=== PATIENT | male | born 1970 | race Caucasian/White ===

== ENCOUNTER 2016-09-06 10:00 | Inpatient (IN) | payer MEDICAID ==
[~2016-09-06] VITALS: Ht 188 cm; Wt 142.3 kg
--- NOTE | ~2016-09-06 | ECHO ---
Transthoracic Echocardiography Report (TTE) Demographics Patient Name ADITYA LUNA Date of Study 09/07/2016 Patient Number [id number] Visit Number [id number] Date of 1970 Room Number G6307 Accession Number [id number] Gender Male Age 46 year(s) Referring Carmen Jarquin Desk Maker Kaelyn Irving RDCS, Physician RVT Physician Interpreting Yrn David MD Stamps Or Coins Salesperson Physician Supervising Ordering Physician Carmen Jarquin MD/MLP Nurse Stress Desktop Manager Conclusions Contractility Score Summary Normal Left Ventricular contractility was noted. Summary The estimated left ventricular ejection fraction is 55-60%. Mild concentric left ventricular hypertrophy. Mild to moderately dilated right ventricle. The left atrium is mildly dilated. The right atrium is moderately dilated. IVC measures 2.5 cm with inspiratory collapse. There is mild pulmonary hypertension. The pulmonary pressure (RVSP) is 40 mmHg. The tricuspid valve is not well visualized. Procedure Type of Study TTE procedure:2D Echocardiogram. Procedure Date Date: 09/07/2016 Start: 10:37 AM Study Location: Inpatient Portable Technical Quality: Limited visualization due to body habitus. Indications:Abnormal ECG. Additional Indications:PVC's Appropriate Use Criteria: 9 Patient Status: Routine Contrast Medium: Definity. Rhythm: Irregular HR: 88 bpm M-Mode/2D Measurements LV Diastolic Dimension: 5.16 cm LV Systolic Dimension: 3.64 cm LV Septum Diastolic: 1.24 cm LV Septum Systolic: 4.65 cm LV PW Diastolic: 1.2 cm AO Root Dimension: 2.9 cm Cardiac Output: 6.69 l/min AV Cusp Separation: 2.2 cm RV Diastolic Dimension: 2.87 cm LA Dimension: 4.2 cm LA volume: 100 ml IVC Inspiration: 1.48 cm LVOT: 2.5 cm RV Base: 5.17 cm LVOT VTI: 15.5 cm RV Mid: 3.52 cm LV Stroke volume: 76.05 ml RV Length: 8.05 cm TAPSE: 2.48 cm TDI-S': 13.9 cm/s Doppler Measurements AV Peak Velocity: 1.61 m/s MV Peak E-Wave: 0.79 m/s AV Peak Gradient: 10.37 mmHg MV Peak A-Wave: 0.85 m/s AV Mean Gradient: 6 mmHg MV E/A Ratio: 0.93 LVOT Peak Velocity: 0.83 m/s MV P1/2t: 44 msec TR Gradient:32.26 mmHg PV Peak Velocity: 1.02 m/s Estimated RAP:8 mmHg PV Peak Gradient: 4.16 mmHg Estimated RVSP: 40 mmHg Estimated PASP: 40.26 mmHg Findings Left Ventricle The estimated left ventricular ejection fraction is 55-60%. Mild concentric left ventricular hypertrophy. Diastolic assessment reveals Grade I diastolic dysfunction. Right Ventricle Mild to moderately dilated right ventricle. Left Atrium The left atrium is mildly dilated. Right Atrium The right atrium is moderately dilated. IVC measures 2.5 cm with inspiratory collapse. Mitral Valve Trivial mitral regurgitation by color Doppler. Aortic Valve The aortic valve is mildly sclerotic. Tricuspid Valve There is mild to moderate pulmonary hypertension. The pulmonary pressure (RVSP) is 40 mmHg. The tricuspid valve is not well visualized. Pulmonic Valve The pulmonic valve is not well visualized. Pericardial Effusion No evidence of pericardial effusion. Miscellaneous Visualized portions of the aortic root and ascending aorta appear normal in size. Pleural Effusion No evidence of pleural effusion. Contractility Score LV regional wall motion:(0-Non visualized 1-Normal 2-Hypokinesis 3-Akinesis 4-Dyskinesis 5-Aneurysm) Signature dtt: Frankie Pool (cardio) dtd: 09/07/16 [facility] Physician Self Edit
--- NOTE | ~2016-09-06 | OR ---
PATIENT'S NAME: ADITYA LUNA [facility] AGE: 46 Y [address] ROOM: [place] [address] LOCATION: GPCU ADMIT DATE: 09/06/2016 OR/Procedure Report DISCHARGE DATE: 09/09/2016 FAMILY PHYSICIAN: PHYSICIAN, NO ATTENDING PHYSICIAN: Milka Morales SURGEON: Mian Guzman MD MANAGEMENT ARCHITECT: DATE OF PROCEDURE: 09/06/2016 REFERRIN. Kay Tripp PA-C, in [place]. 2. Dr. Brandt Bolden. PREOPERATIVE DIAGNOSES: 1. Cholecystitis, cholelithiasis. 2. Possible cholangitis, sepsis. POSTOPERATIVE DIAGNOSIS: Gangrenous cholecystitis with gangrenous cystic portion of cystic duct and obstruction of cystic duct secondary to stones. PROCEDURE PERFORMED: Laparoscopic cholecystectomy. ANESTHESIA: General. ESTIMATED BLOOD LOSS: Less than 100 mL. SPECIMEN: Gallbladder with gangrenous wall changes and stones. INDICATION: The patient is a 46-year-old gentleman with history of morbid obesity, losing 325 pounds in the last two years, he is down to 300, but in the last 48 hours had persistent pain in the epigastrium into his back. He presents with a white count of 20,000, his bilirubin is up to 4.5. Ultrasound showed thick gallbladder with stones, and MRCP showed normal common bile duct but dilated cystic duct and gallbladder with inflammatory changes and stones. We elected to take him to the operating room urgently for cholecystectomy and hopeful cholangiogram. DESCRIPTION OF PROCEDURE: After informed consent, the patient was taken to the operating room, and after general endotracheal anesthesia, the patient's abdomen was prepped and draped into a sterile field. Local anesthetic infiltrated prior to each incision. The first one made below the umbilicus and carried down to identify a very attenuated abdominal wall fascia through which we placed a Veress needle and created pneumoperitoneum. We placed an 11 mm trocar and laparoscope. Safe entry was noted under direct vision. The remaining trocars were placed. The gallbladder was tightly distended. There PATIENT'S NAME: ADITYA LUNA [facility] AGE: 46 Y [address] ROOM: [place] [address] LOCATION: GPCU ADMIT DATE: 09/06/2016 OR/Procedure Report DISCHARGE DATE: 09/09/2016 FAMILY PHYSICIAN: PHYSICIAN, NO ATTENDING PHYSICIAN: Milka Morales were gangrenous changes. We photographed it. We had to aspirate 50 mL of purulent dark bile out of it in order to get to the fundus, in order to grab the fundus and retract it cephalad. Acute and chronic inflammatory changes held the infundibulum down to the duodenum and the mesentery of the mesocolon and the mesentery of the transverse colon. We carefully, meticulously, just bluntly took our time and dissected using electrocautery, blunt dissection, water irrigation, and suction. We could tell that the infundibulum was very gangrenous. It was difficult to grab this with the trocar without getting a hold, but with careful and meticulous dissection and we slowly cleared off, what we could see is the tortuous dilated cystic duct leaving the gallbladder, looping over itself and going down toward the duodenum. We then identified a decompressed portion of the cystic duct, which still had some gangrenous changes. We isolated out the cystic artery, clipped x3 and divided, and we clipped the cystic artery x2 and divided. We could not perform a cholangiogram due to the inflammatory changes, the patient's morbid obesity, and the fact that the cystic duct which was visualized was necrotic and we did want to try to attempt to stick a cholangiogram catheter down there and have a distal puncture. We felt safe with the defined anatomy, we were high and we were not presumably near the common bile duct. We placed two clips, divided the cystic duct on the more dilated gangrenous portion. We then used an Endoloop to again secure it. The ischemic mucosa of the cystic duct was noted, and we planned on leaving a drain. We then took the gallbladder off the liver bed with electrocautery, and we used cautery to obtain hemostasis. It was placed into an Endo Catch bag, a very thickened gallbladder with stones. We had to enlarge the fascial defect at the umbilicus in order to get it out. Once removed, we used interrupted 0 Prolene sutures in a [id number]-gf-ypmug to close the fascial defect. We recreated pneumoperitoneum and copiously irrigated the right upper quadrant with 4 L of irrigation fluid until clear. Through the 5 mm lateral drain, we left a INOCENCIO in place. We left it in the superior aspect of the gallbladder fossa down by the subhepatic space. We used Endo Stitch of 0 Vicryl to close the subxiphoid fascial defect in the midline. We then released the pneumoperitoneum and tied down the Prolene sutures of the fascia closure at the umbilicus. We closed the skin with subcuticular 4-0 Vicryl. Steri- Strips and sterile dressings were applied. The patient tolerated the procedure well and transferred to recovery room in stable condition. MD NORAH FITZGERALD/modl /[id number] d: 09/07/16 0059 t: 09/20/16 0904, OPERATIVE SUMMARY
--- NOTE | ~2016-09-06 | DS ---
PATIENT'S NAME: ADITYA LUNA [facility] AGE: 46 Y [address] ROOM: [address] [address] LOCATION: GPCU ADMIT DATE: 09/06/2016 Discharge Summary DISCHARGE DATE: 09/09/2016 FAMILY PHYSICIAN: PHYSICIAN, SUPRIYA ATTENDING PHYSICIAN: Milka Morales ADMITTING DIAGNOSIS: Severe sepsis, secondary to cholecystitis. DISCHARGE DIAGNOSIS: Severe sepsis, secondary to cholecystitis, resolving, status post cholecystectomy. SECONDARY DIAGNOSES: 1. Obesity. 2. Abdominal pain. 3. Premature ventricular contractions. PROCEDURE: Cholecystectomy done on 09/06/[address] Guzman. CONSULTATION: GI and General Surgery. HISTORY OF PRESENT ILLNESS: The patient is a 46-year-old gentleman with past medical history of obesity and gastric sleeve surgery with close to 300-pound weight loss and history of DVTs, who presented from [facility] with possible cholangitis. The patient has been experiencing two days history of right upper quadrant pain. The patient was evaluated in the emergency department and had leukocytosis of 20 and a bilirubin of 4.5. Ultrasound showed cholecystitis with possible common bile duct dilation. The patient was transferred for possible ERCP. HOSPITAL COURSE: The patient was admitted and started on Zosyn and IV fluids. Blood culture was taken. GI was consulted for possible cholangitis. MRCP was done. MRCP did not show any signs of common bile duct obstruction or dilation. The patient was taken to surgery and had cholecystectomy. The patient tolerated the procedure well. The patient continued to be treated with Zosyn. Blood culture no growth to date. Leukocytosis improved during his stay. The patient had INOCENCIO drain in place after surgery. The patient was discharged home in stable condition to follow up with Dr. Guzman with his INOCENCIO drain removal on 09/11/2016. The patient was educated on how to use his drain. The patient was also noted to have several PVCs during his stay. The patient has a history of multiple PVCs and has been worked up by his Cardiology and was placed on beta-noe, Lopressor. But, however, his primary care physician discontinued his Lopressor, and recently has been having more PVCs. To continue, the patient was started back on Lopressor 12.5 mg and increased to 25 mg b.i.d. PVCs frequency decreased. Echocardiogram was done to evaluate structural disease. Echocardiogram was unremarkable. PATIENT'S NAME: ADITYA LUNA [facility] AGE: 46 Y [address] ROOM: [id number] [place], [place] [address] [facility] ADMIT DATE: 09/06/2016 Discharge Summary DISCHARGE DATE: 09/09/2016 FAMILY PHYSICIAN: PHYSICIAN, NO ATTENDING PHYSICIAN: Milka Morales CONDITION: Stable. DISPOSITION: Home. DISCHARGE MEDICATIONS: See APR. DISCHARGE INSTRUCTIONS: Follow up with Dr. Guzman and also INOCENCIO drain care. FOLLOWUP: Follow up with Dr. Guzman on 09/11/2016. PHYSICAL EXAMINATION: VITAL SIGNS: Temperature 98.2, blood pressure 156/90, pulse of 93, respiratory rate of 18. GENERAL APPEARANCE: The patient is alert and awake, in no acute distress. CHEST: Clear to auscultation bilaterally. HEART: Regular rate and rhythm. No murmurs, rubs, or gallops. ABDOMEN: Soft, nontender, and distended. Bowel sounds present. INOCENCIO drain in place. EXTREMITIES: No edema. SKIN: Warm to touch. CABLE INSTALLER: Alert and oriented x3. Motor and sensory grossly intact. Greater than 30 minutes was spent on the patient care. The patient to be discharged home on oral Augmentin for 5 more days. MD ROMULO GIBBONS/fran /[id number] d: 09/10/16 0256 t: 09/17/16 0614, DISCHARGE SUMMARY
--- NOTE | ~2016-09-06 | CON ---
PATIENT'S NAME: ADITYA LUNA [facility] AGE: 46 Y [address] ROOM: [place] [address] LOCATION: GICU ADMIT DATE: 09/06/2016 Consultation DISCHARGE DATE: FAMILY PHYSICIAN: PHYSICIAN, NO ATTENDING PHYSICIAN: Milka MORALES DATE OF CONSULTATION: 09/06/2016 REFERRING PHYSICIAN: Milka Morales MD REASON FOR CONSULTATION: Possible choledocholithiasis. HISTORY OF PRESENT ILLNESS: The patient is a pleasant, 46-year-old white male who has been referred to us from [facility]. He presented there this morning with abdominal pain. According to the patient, he was having abdominal pain for the last 2 days. The pain was particularly bad the day before yesterday. He says it was in the right upper quadrant with intensity of about 7/10. The pain was somewhat better yesterday. However, the pain got worse overnight. He presented to the hospital. He was found to have abnormal liver enzymes with bilirubin of 4. He was also found to have a slightly prominent CBD and cholelithiasis and likely cholecystitis. With a suspicion of choledocholithiasis, he has been transferred here. He denies any history of fever or chills. He has not been hemodynamically unstable. No history of nausea and vomiting. Pain is currently 6/10. PAST MEDICAL HISTORY: Significant for gastric bypass surgery. He has lost 300 pounds of weight. This surgery was done in 2014. His past medical history is significant for essential hypertension, frequent PVCs, morbid obesity, and obstructive sleep apnea which has improved since the surgery. ALLERGIES: NO KNOWN DRUG ALLERGIES. MEDICATIONS: Include: 1. Flonase Allergy Relief nasal spray. 2. Albuterol sulfate. 3. Vitamin D3. 4. Toprol-XL. PAST SURGICAL HISTORY: Positive for surgery of the right leg, he says he has "metal" in there. He also has a history of gastric sleeve resection. PATIENT'S NAME: ADITYA LUNA [facility] AGE: 46 Y [address] ROOM: [place] [address] LOCATION: GICU ADMIT DATE: 09/06/2016 Consultation DISCHARGE DATE: FAMILY PHYSICIAN: PHYSICIAN, NO ATTENDING PHYSICIAN: Milka MORALES PSYCHOSOCIAL HISTORY: He denies any tobacco use. Occasional alcohol use. He has used occasional marijuana, last one was about 4 days ago. REVIEW OF SYSTEMS: A detailed 10-point review of system was done. It was found to be negative other than what is mentioned in the History of Present Illness and Past Medical History. PHYSICAL EXAMINATION: GENERAL: Today, he is alert and awake. He does not appear to be in any acute distress. VITAL SIGNS: He is afebrile. Heart rate is 100 per minute, blood pressure 162/110. HEENT: Mild icterus. No pallor. Head and ENT: Oral cavity is normal. Nasal passages are clear. NECK: No thyromegaly is felt. No masses are felt. CARDIOVASCULAR: S1 and S2. I do not hear any carotid bruits. CHEST: Clear to auscultation bilaterally. No wheezing. No rhonchi. ABDOMEN: Soft. There is owoj-zy-xgwhirwq tenderness in the right upper quadrant. MUSCULOSKELETAL: No obvious injuries found. He does have venous stasis of the lower extremities. NEUROLOGIC: Grossly nonfocal. LABORATORY DATA: His labs done over the course of the last day include a urine complete exam that shows nitrite positive and 0 to 3 wbc's per high-powered field. His troponin-I is negative. His glucose is 167, BUN is 9, creatinine 1.07, sodium 136, potassium 3.4, chloride is 99, bicarbonate is 26. Albumin is 3.2, total bilirubin is 4.1, ALT of 865, AST of 142, alkaline phosphatase is 355. His WBC is 20.1, hemoglobin 17.5, hematocrit 49.5. Amylase is 37 and lipase is 66. His platelet count is 345. Ultrasound done at the other facility. Ultrasound shows cholelithiasis with findings suggestive of cholecystitis. A small portion of the CBD was visualized. This was dilated to about 7 mm. IMPRESSION: The patient with a history of abdominal pain and cholelithiasis. He does appear to have acute cholecystitis with a suspicion of choledocholithiasis. He does not appear to have cholangitis at this time. RECOMMENDATIONS: I would suggest that the patient undergo an MRCP. Pending results of that, we will decide on further management. The patient should continue on IV antibiotics. I have had a detailed discussion with the patient. I have PATIENT'S NAME: ADITYA LUNA [facility] AGE: 46 Y [address] ROOM: [address] [address] LOCATION: [facility] ADMIT DATE: 09/06/2016 Consultation DISCHARGE DATE: FAMILY PHYSICIAN: PHYSICIAN, NO ATTENDING PHYSICIAN: Milka MORALES explained to him the procedure of MRCP as well as ERCP. The procedure of ERCP was explained in detail. All risks including, but not limited to bleeding, perforation, and possible need for surgery were explained. Informed consent has been obtained. Pending the results of the MRCP, further management will be decided. I discussed the case with the hospitalist Dr. Morales also. He is here onboard with his management. MD JEREMY YANES/fran /[id number] d: 09/06/16 1919 t: 09/07/16 1044, CONSULTATION REPORT
--- NOTE | ~2016-09-06 | HP ---
PATIENT'S NAME: ADITYA LUNA [facility] AGE: 46 Y [address] ROOM: [place] [address] LOCATION: GICU ADMIT DATE: 09/06/2016 History & Physical DISCHARGE DATE: FAMILY PHYSICIAN: PHYSICIAN, NO ATTENDING PHYSICIAN: Milka ESTEVEZ DATE OF SERVICE: CHIEF COMPLAINT: Severe sepsis. HISTORY OF PRESENT ILLNESS: The patient is a 46-year-old gentleman with past medical history of obesity with gastric sleeve surgery with close to 300-pound weight loss, obstructive sleep apnea, and history of frequent PVCs, who presents here from [facility] with possible cholangitis. The patient reports that for the past 2 days he has been experiencing right upper quadrant pain. The patient claims that his pain is colicky, intermittent, rates the pain 6 to 7 out of 10 and it was associated with nausea. The patient reports that the pain was intermittent and there was no exacerbating and alleviating factors. The patient's symptoms and pain frequency increased and which led him to go to the emergency department. In the emergency department, the patient was found to have leukocytosis of 20 and bilirubin of 4.5. Ultrasound of right upper quadrant shows cholecystitis with possible common bile duct dilation, concerning for cholangitis. The patient was transferred here to our hospital for possible GI evaluation with ERCP. The patient denies fever, vomiting, diarrhea, chest pain, shortness of breath, headache, orthopnea, leg swelling, or vision change. MEDICAL HISTORY: Obstructive sleep apnea and history of PVCs. SURGICAL HISTORY: Gastric sleeve surgery in 2015. FAMILY HISTORY: The patient is adopted and does not know his family history. SOCIAL HISTORY: The patient denies smoking and drinking. MEDICATIONS: Currently being reconciled. REVIEW OF SYSTEMS: PATIENT'S NAME: ADITYA LUNA [facility] AGE: 46 Y [address] ROOM: [place] [id number] LOCATION: GICU ADMIT DATE: 09/06/2016 History & Physical DISCHARGE DATE: FAMILY PHYSICIAN: PHYSICIAN, NO ATTENDING PHYSICIAN: Milka ESTEVEZ All systems have been reviewed and are negative except for what I mentioned in the HPI. PHYSICAL EXAMINATION: VITAL SIGNS: Afebrile, blood pressure 162/110, heart rate of 101, respiratory rate of 17, and saturating 98% on room air. GENERAL APPEARANCE: The patient appears in mild discomfort due to right upper quadrant pain. HEAD: Normocephalic, atraumatic. EYES: Sclerae nonicteric. NOSE: No nasal discharge. MOUTH: Dry oral mucosa. CHEST: Clear to auscultation bilaterally. HEART: Regular rate and rhythm. No murmurs, rubs, or gallops. ABDOMEN: Wjjb-xy-onfjqfyf right upper quadrant tenderness to palpation with no guarding and no rebound. Bowel sounds active. Abdomen nondistended. SKIN: Warm to touch. MUSCULOSKELETAL: No obvious joint effusion seen. Range of motion intact. BUTTON SEWING MACHINE OPERATOR: The patient is alert and oriented. Motor and sensory grossly intact. LABORATORY DATA: Lab sent from outside hospital shows white blood cell count of 20, hemoglobin of 17.5, platelets of 345, and bilirubin of 4.5. Lipase and amylase within normal limits. Creatinine 1.07, BUN of 9, sodium 136, potassium 3.4. Lactate of 0.9. ASSESSMENT AND PLAN: 1. Severe sepsis. Etiology secondary to cholecystitis with possible cholangitis. Sepsis identified at 6:45 a.m. at an outside hospital. Blood culture was taken at the outside hospital. The patient was started on Zosyn and also a lactate was drawn, the lactate was 0.9. The patient has received 1.5 L at the outside hospital. We will continue the current bag to make it 2 L and also we will give additional 2 more L as the patient needs 30 mL/kg IV fluids. Continue IV fluids at 125 mL an hour. Blood culture pending. We will continue Zosyn. Keep the patient n.p.o. The patient is to have an MRCP for a definite diagnosis of common bile duct obstruction. If it shows common bile duct instructions, GI already consulted, discussed with Dr. Hyman for a possible ERCP. The case also discussed with Dr. Guzman for the cholecystitis and to have cholecystectomy after the ERCP. 2. Cholecystitis with possible cholangitis. See problem #1. 3. Frequent premature ventricular contractions. The patient reports that he has a history of PVC and is on beta-noe. He has seen mine technician in the past and was told to continue on beta-noe. We will continue use PATIENT'S NAME: ADITYA LUNA [facility] AGE: 46 Y [address] ROOM: [address] [address] LOCATION: [facility] ADMIT DATE: 09/06/2016 History & Physical DISCHARGE DATE: FAMILY PHYSICIAN: PHYSICIAN, NO ATTENDING PHYSICIAN: Milka ESTEVEZ of [facility]. We will also acquire echocardiogram to see if there is any structural disease. Keep the patient on telemonitor. We will keep potassium greater than 4 and magnesium greater than 2. 4. Obstructive sleep apnea. I am going to use CPAP. 5. Obesity. Ongoing morbid obesity, status post gastric sleeve surgery. Greater than 70 minutes was spent on the patient's care. Greater than 50% of the time was spent on direct patient care. Case was discussed with Rody Cat from [facility]. Also case was discussed with Dr. Hyman with GI Department and Dr. Guzman with General Surgery. Code status discussed on admission, code status full code. To continue IV fluids and antibiotics awaiting blood culture and awaiting MRCP for possible ERCP. MD ROMULO GIBBONS/fran /[id number] D: 943 T: HISTORY & PHYSICAL
--- NOTE | ~2016-09-06 | HP ---
PATIENT'S NAME: ADITYA LUNA [facility] AGE: 46 Y [address] [id number] [address] LOCATION: [facility] ADMIT DATE: 09/06/2016 History & Physical DISCHARGE DATE: FAMILY PHYSICIAN: PHYSICIAN, NO ATTENDING PHYSICIAN: Milka ESTEVEZ DATE OF SERVICE: CHIEF COMPLAINT: Abdominal pain. REVIEW OF RECORD: The patient is a 46-year-old gentleman who presented to [facility] with a 40- hour history of abdominal pain, it is in the epigastrium, right upper quadrant, into his back. He said it is associated with nausea, tried to vomit, but he was unable to do so as he has had a sleeve procedure. [place] [address]. His amylase and lipase were normal. His bilirubin, however, was up to 4.5; alkaline phosphatase was 355; his AST was 142; and his ALT was 65. His creatinine 1.07, potassium 3.4, and sodium 136. The patient had an ultrasound which showed cholelithiasis, gallbladder wall thickening and inflammatory changes, and they suspected a dilated common bile duct. The patient was admitted to the Hospitalist Service at [facility] to PCU status, with a sepsis protocol initiated due to suspected cholangitis and cholecystitis. The patient underwent an MRCP after consultation with Dr. Hyman, aircraft mechanic electrical and radio. I reviewed it with Dr. Mendez who suggested cholecystitis and cholelithiasis with stones in the cystic duct, which presumably was probably the dilated duct they saw instead of the common bile duct down in [place]. The common bile duct, Dr. Mendez feels, is 5 mm, small, and not obstructed. Therefore, the plan is to go ahead and remove the gallbladder for acute inflammatory changes and if it is technically possible, perform cholangiogram assessment of the common bile duct. The patient says, prior to the last 2 days, he has not had any symptoms like that. His history is significant for morbid obesity, he weighed maximum 338 pounds at one time in 2013. He said he got pneumonia, almost , and made the decision to proceed with bariatric surgery. He had a laparoscopic sleeve procedure and has lost 338 pounds successfully. He says he has gotten off his blood pressure medication. The patient denies previous history of hepatitis or pancreatitis, no history of alcohol abuse. He denies any abdominal trauma, no other abdominal surgeries other than the gastric sleeve procedure. PAST MEDICAL HISTORY: None. MEDICATIONS: PATIENT'S NAME: ADITYA LUNA [facility] AGE: 46 Y [address] ROOM: [place] [address] LOCATION: [facility] ADMIT DATE: 09/06/2016 History & Physical DISCHARGE DATE: FAMILY PHYSICIAN: PHYSICIAN, NO ATTENDING PHYSICIAN: Milka ESTEVEZ None. ALLERGIES: NONE. OPERATIONS: Laparoscopic sleeve procedure for gastric reduction. SOCIAL HISTORY: Single. Has 5 children, raising 2. Does not smoke or drink. He is unemployed. FAMILY HISTORY: Unknown due to adoption. REVIEW OF SYSTEMS: He denies any spiking fevers. Denies any change in vision or hearing. No problems swallowing. Denies any emesis. No cough. No thyroid or diabetic conditions. No shortness of breath. He says he is seeing Dr. Jeromy Massey for Cardiology in February 2016 and is on routine followup. He says he does use a sleep apnea machine. Denies any swollen joints. Does report the above- mentioned back pain. PHYSICAL EXAMINATION: GENERAL: He is a tired-appearing 46-year-old gentleman who is cooperative to exam. VITAL SIGNS: His pulse is 95, blood pressure 132/93. He is 95% saturated on room air. He is afebrile. HEENT: Head is normocephalic. His sclerae are slightly icteric. His mucous membranes are dry. NECK: Supple. There is no adenopathy or thyromegaly. He has no carotid bruits. HEART: Normal sinus rhythm. Occasional ectopic beat. No audible murmur. LUNGS: Clear to auscultation bilaterally. ABDOMEN: Has redundant skin, flabby, it is nondistended but tender to palpation in the right upper quadrant. He does guard. No palpable mass or hepatomegaly to percussion. EXTREMITIES: 2/2 femoral and dorsalis pedis pulses. No peripheral edema. IMPRESSION: Cholecystitis, cholelithiasis, possible choledocholithiasis, cholangitis. The stones have not reached the common bile duct per magnetic resonance cholangiopancreatography report. Therefore, we plan to proceed with laparoscopic examination. PATIENT'S NAME: ADITYA LUNA [facility] AGE: 46 Y [address] ROOM: [address] [address] LOCATION: [facility] ADMIT DATE: 09/06/2016 History & Physical DISCHARGE DATE: FAMILY PHYSICIAN: PHYSICIAN, NO ATTENDING PHYSICIAN: Milka ESTEVEZ PLAN: Laparoscopic cholecystectomy and if feasible, cholangiogram. I explained the procedure, benefits, and risks including, but not limited to abdominal wall injury, hernias, bleeding requiring transfusion or reoperation, common bile duct injury, bile leak, ongoing sepsis, pneumonia, blood clots, myocardial infarction, and loss of life. I answered the patient's questions, and he wishes to proceed. Thank you very much for allowing me to participate in his care. MARCELO ALLEN MD WTRoyal/modl /[id number]: [id number] T: [id number] HISTORY & PHYSICAL
[2016-09-06] MEDS ORDERED: FLONASE 50 MCG/16 GM NOSE (12:49)
[2016-09-06] MEDS ORDERED: CLARITIN10 MG PO (12:50)
[2016-09-06] MEDS ORDERED: ALBUTEROL2.5 MG/31 INH (12:50)
[2016-09-06 13:14] LABS: BASOPHIL % 0.2 %; EOSINOPHIL % 0.2 %; HEMATOCRIT 48.5 % (37.0-53.0); IMMATURE GRANULOCYTE # 0.2 K/uL (0.0-0.3); IMMATURE GRANULOCYTE % 0.9 %; LYMPHOCYTE # 1.5 K/uL (0.8-4.0); LYMPHOCYTE % 8.1 %; MCHC 35.1 gm/dL (32.0-36.5); MCV 91.3 fl (83.0-98.0); MONOCYTE # 1.4 K/uL (0.0-1.0); MONOCYTE % 7.7 %; MPV 8.8 fl (9.4-12.4); NEUTROPHIL # (ANC) 15.4 K/uL (1.4-9.0); NEUTROPHIL % 82.9 %; NRBC % 0 /100WBC (0-0.00); PLATELET COUNT 258 K/uL (150-450); RBC 5.31 M/uL (4.00-6.00); RDW-CV 13.1 % (11.9-14.6)
[2016-09-06 13:16] LABS: WBC 18.6 K/uL (4.0-11.0)
[2016-09-06 13:22] LABS: INR - (THERAPEUTIC) 1.08 (0.92-1.07); PROTIME 11.4 SECONDS (9.8-11.4); PTT 30 SECONDS (25-32)
[2016-09-06 13:24] LABS: PCO2 46 mmHg (35-45)
[2016-09-06 13:24] LABS: BLOOD URINE NEGATIVE /UL (NEGATIVE); GLUCOSE URINE NEGATIVE (NEGATIVE); KETONE URINE NEGATIVE (NEGATIVE); LEUKOCYTES URINE 25 /UL (NEGATIVE); NITRITE URINE NEGATIVE (NEGATIVE); PROTEIN URINE 15 mg/dL (NEGATIVE); TURBIDITY URINE CLEAR (CLEAR); UROBILINOGEN URINE 12 mg/dL (NORMAL)
[2016-09-06 13:25] LABS: BICARBONATE 27.8 mmol/L (18.0-23.0); PO2 39 mmHg (80-90)
[2016-09-06 13:30] LABS: COLOR URINE OTHER (YELLOW)
[2016-09-06 13:31] LABS: ALBUMIN 2.9 gm/dL (3.5-5.0); ALK PHOS 332 IU/L (33-138); ALT 68 IU/L (12-78); BLOOD UREA NITROGEN 8 mg/dL (6-24); CALCIUM 8.3 mg/dL (8.5-10.5); CHLORIDE 106 mMol/L (96-110); CO2 23 mMol/L (22-32); CREATININE 0.9 mg/dL (0.6-1.3); SODIUM 138 mMol/L (135-145); TOTAL BILIRUBIN 5.5 mg/dL (0.0-1.5); TOTAL PROTEIN 6.8 g/dL (6.0-8.4)
[2016-09-06 13:33] LABS: AMORPHOUS URINE 3+ (NEGATIVE); BACTERIA URINE NEGATIVE (NEGATIVE); EPITHELIAL URINE 0-2 #/HPF (NEGATIVE); RBC URINE NEGATIVE #/HPF (NEGATIVE); WBC URINE 0-2 #/HPF (NEGATIVE)
[2016-09-06 13:33] LABS: ANION GAP 12.6 (10.0-19.0); AST 133 IU/L (10-40); POTASSIUM 3.6 mMol/L (3.7-5.1)
[2016-09-07 02:29] LABS: BASOPHIL % 0.2 %; EOSINOPHIL % 0.1 %; HEMOGLOBIN 14.8 g/dL (12.0-17.0); IMMATURE GRANULOCYTE # 0.2 K/uL (0.0-0.3); IMMATURE GRANULOCYTE % 0.9 %; LYMPHOCYTE # 1.4 K/uL (0.8-4.0); LYMPHOCYTE % 7.2 %; MCHC 34.4 gm/dL (32.0-36.5); MCV 93.1 fl (83.0-98.0); MONOCYTE # 1.3 K/uL (0.0-1.0); MONOCYTE % 6.7 %; MPV 9.1 fl (9.4-12.4); NEUTROPHIL # (ANC) 16.4 K/uL (1.4-9.0); NEUTROPHIL % 84.9 %; NRBC % 0 /100WBC (0-0.00); PLATELET COUNT 308 K/uL (150-450); RBC 4.62 M/uL (4.00-6.00); RDW-CV 13.4 % (11.9-14.6)
[2016-09-07 02:30] LABS: WBC 19.3 K/uL (4.0-11.0)
[2016-09-07 02:50] LABS: ALBUMIN 2.3 gm/dL (3.5-5.0); ALK PHOS 248 IU/L (33-138); ALT 71 IU/L (12-78); BLOOD UREA NITROGEN 7 mg/dL (6-24); CALCIUM 7.9 mg/dL (8.5-10.5); CHLORIDE 109 mMol/L (96-110); CO2 26 mMol/L (22-32); CREATININE 0.9 mg/dL (0.6-1.3); SODIUM 140 mMol/L (135-145)
[2016-09-07 02:57] LABS: ANION GAP 9.9 (10.0-19.0); AST 130 IU/L (10-40); MAGNESIUM 2.1 mg/dL (1.8-2.6); POTASSIUM 4.9 mMol/L (3.7-5.1); TOTAL BILIRUBIN 1.3 mg/dL (0.0-1.5)
[2016-09-08 04:11] LABS: BASOPHIL # 0.1 K/uL (0.0-0.2); BASOPHIL % 0.6 %; EOSINOPHIL # 0.2 K/uL (0.0-0.5); EOSINOPHIL % 1.7 %; HEMATOCRIT 41.7 % (37.0-53.0); HEMOGLOBIN 14.1 g/dL (12.0-17.0); IMMATURE GRANULOCYTE # 0.2 K/uL (0.0-0.3); IMMATURE GRANULOCYTE % 1.2 %; LYMPHOCYTE # 2.9 K/uL (0.8-4.0); LYMPHOCYTE % 23.8 %; MCHC 33.8 gm/dL (32.0-36.5); MCV 94.8 fl (83.0-98.0); MONOCYTE % 8.5 %; MPV 8.9 fl (9.4-12.4); NEUTROPHIL # (ANC) 7.7 K/uL (1.4-9.0); NEUTROPHIL % 64.2 %; NRBC % 0 /100WBC (0-0.00); PLATELET COUNT 298 K/uL (150-450); RDW-CV 13.6 % (11.9-14.6); WBC 12.1 K/uL (4.0-11.0)
[2016-09-08 04:28] LABS: ALBUMIN 2.4 gm/dL (3.5-5.0); ALK PHOS 195 IU/L (33-138); ALT 52 IU/L (12-78); AST 49 IU/L (10-40); BLOOD UREA NITROGEN 10 mg/dL (6-24); CALCIUM 8.1 mg/dL (8.5-10.5); CHLORIDE 108 mMol/L (96-110); CO2 29 mMol/L (22-32); CREATININE 0.9 mg/dL (0.6-1.3); MAGNESIUM 2.2 mg/dL (1.8-2.6); SODIUM 143 mMol/L (135-145); TOTAL PROTEIN 5.9 g/dL (6.0-8.4)
[2016-09-08 04:29] LABS: ANION GAP 9.5 (10.0-19.0); POTASSIUM 3.5 mMol/L (3.7-5.1); TOTAL BILIRUBIN 0.6 mg/dL (0.0-1.5)
[2016-09-09] MEDS ORDERED: ULTRAM50 MG PO (10:55)
[2016-09-09] MEDS ORDERED: LOPRESSOR25 MG PO (10:55)
[2016-09-09] MEDS ORDERED: AUGMENTIN 875-1 EACH PO (11:06)
== END 2016-09-09 12:00 | disposition disaster alternative care site (69) | DRG 854 ==
LOC: GICU 11:27 → GPCU 09-07 21:00
PROVIDERS: Internal Medicine; ADMIT Internal Medicine
PROC: 0FT44ZZ Resection of Gallbladder, Percutaneous Endoscopic Approach (ICD-10-PCS; principal; 2016-09-06)
DX: A41.9 Sepsis, unspecified organism (principal); K83.0 Cholangitis; Z68.41 Body mass index [BMI] 40.0-44.9, adult; K80.01 Calculus of gallbladder with acute cholecystitis with obstruction; E66.01 Morbid (severe) obesity due to excess calories; K83.8 Other specified diseases of biliary tract; R65.20 Severe sepsis without septic shock; G47.33 Obstructive sleep apnea (adult) (pediatric); I49.3 Ventricular premature depolarization
CPT/HCPCS: C9113; J1170; J1335; J1650; J2270; J2543; J3480; J7030; J7050; Q9957

== ENCOUNTER → 2016-09-06 | Outpatient (CLI) | payer MEDICAID ==
[~2016-09-06] MED LIST: ALBUTEROL2.5 MG/31 INH; AUGMENTIN 875-1 EACH PO; CLARITIN10 MG PO; FLONASE 50 MCG/16 GM NOSE; LOPRESSOR25 MG PO; ULTRAM50 MG PO
== END | disposition disaster alternative care site (69) ==
LOC: GAMB 09:55
DX: R10.84 Generalized abdominal pain (principal); K80.10 Calculus of gallbladder with chronic cholecystitis without obstruction; I10 Essential (primary) hypertension; R10.2 Pelvic and perineal pain; Z79.899 Other long term (current) drug therapy
CPT/HCPCS: A0425; A0426; J3010; Q9957